=== PATIENT | female | born 1995 | race Caucasian/White ===

== ENCOUNTER 2022-12-17 01:40 | Emergency (ER) | payer OTHER ==
[~2022-12-17] VITALS: Ht 170.2 cm; Wt 97.7 kg
[2022-12-17] MEDS ORDERED: PRILOSEC 20MG20 MG PO (01:56)
[2022-12-17] MEDS ORDERED: VENLAFAXINE HCL50 MG PO (01:57)
[2022-12-17 02:51] LABS: BASO # 0.05 K/mm3 (0.02-0.10); EOS # 0.23 K/mm3 (0.04-0.40); EOS % 2.9 % (1.0-5.0); HEMATOCRIT 42.2 % (37.0-47.0); HEMOGLOBIN 13.4 g/dL (12.5-16.0); LYMPH# 2.86 K/mm3 (1.50-4.00); MEAN CELL VOLUME 84 fl (78-100); MEAN CORPUSCULAR HEMOGLOBIN 27 pg (27-31); MEAN CORPUSCULAR HGB CONC 32 g/dL (33-37); MEAN PLATELET VOLUME 11.3 fl (7.4-10.4); MONO # 0.59 K/mm3 (0.20-0.80); NEU # 4.28 K/mm3 (1.40-6.50); PLATELET COUNT 240 K/mm3 (130-400); RED BLOOD COUNT 5.03 M/mm3 (4.10-5.30); RED CELL DISTRIBUTION WIDTH 12.3 % (11.5-14.5)
[2022-12-17 03:01] LABS: CALCIUM 8.8 mg/dL (8.3-10.5)
[2022-12-17 03:02] LABS: TOTAL PROTEIN 6.7 g/dL (6.4-8.3)
[2022-12-17 03:04] LABS: TOTAL BILIRUBIN 0.2 mg/dL (0.2-1.2)
[2022-12-17 03:09] LABS: MAGNESIUM 1.82 mg/dL (1.60-2.60)
[2022-12-17] MEDS ORDERED: KETOROLAC10 MG PO (03:13)
[2022-12-17] MEDS ORDERED: ZOFRAN ODT4 MG PO (03:13)
[2022-12-17 03:38] VITALS: BP 165/98
== END 2022-12-17 03:30 | disposition home or self-care (01) ==
LOC: ED 01:40
PROVIDERS: Family Medicine
DX: G43.909 Migraine, unspecified, not intractable, without status migrainosus (principal); E66.01 Morbid (severe) obesity due to excess calories; Z68.33 Body mass index [BMI] 33.0-33.9, adult
CPT/HCPCS: J1885